=== PATIENT | female | born 1945 | race Caucasian/White ===

== ENCOUNTER 2020-03-02 10:26 | Outpatient (CLI) | payer MEDICARE, BC ==
[2020-03-02 15:53] LABS: ALBUMIN 4.6 g/dL (3.2-5.5); ALBUMIN/GLOBULIN RATIO 1.8 (1.0-2.2); BILIRUBIN,TOTAL 0.9 mg/dL (0.2-1.0); CALCIUM 9.6 mg/dL (8.5-10.3); CREATININE 0.8 mg/dL (0.4-1.0); TOTAL PROTEIN 7.2 g/dL (6.7-8.2)
== END 2020-03-02 10:27 | disposition home or self-care (01) ==
LOC: LAB.S 10:26
PROVIDERS: ATTEND Internal Medicine
DX: E78.00 Pure hypercholesterolemia, unspecified (principal); Z86.39 Personal history of other endocrine, nutritional and metabolic disease; I10 Essential (primary) hypertension
CPT/HCPCS: 36415; 80053; 84443

== ENCOUNTER 2020-04-02 07:30 | Outpatient (CLI) | payer MEDICARE, BC ==
[2020-04-02 15:35] LABS: CHOL/HDL RATIO 3.6 (<4.4); CHOLESTEROL 250 mg/dL; HDL CHOLESTEROL 69 mg/dL; LDL CHOLESTEROL,CALCULATED 165 mg/dL; LDL/HDL RATIO 2.4 (<4.4); VLDL CHOLESTEROL 16 mg/dL
== END 2020-04-02 07:31 | disposition home or self-care (01) ==
LOC: LAB.S 07:30
PROVIDERS: ATTEND Internal Medicine
DX: E78.00 Pure hypercholesterolemia, unspecified (principal); I10 Essential (primary) hypertension
CPT/HCPCS: 36415; 80061; 83721

== ENCOUNTER 2021-05-25 08:00 | Outpatient (CLI) | payer BC, MEDICARE ==
--- NOTE | 2021-05-25 15:07 | XRAY Report ---
PROCEDURE: Wrist 4 View RT INDICATIONS: UNSPECIFIED FRACTURE OF RIGHT WRIST TECHNIQUE: 4 views of the wrist were acquired. COMPARISON: June 20, 2013 FINDINGS: BONES: Transverse, mildly comminuted fracture of the distal radius, which extends to the distal radio ulnar articulation. Nondisplaced fracture of the ulnar styloid The carpal bones are normally aligned. Mild to moderate arthrosis of the first carpometacarpal articulation. SOFT TISSUES: Edema about the fracture site. IMPRESSION: 1.Fractures of the distal radius and ulnar styloid as detailed above. Reviewed by: Jatin Yanez MD on 05/25/2021 3:05 PM PDT Approved by: Jatin Yanez MD on 05/25/2021 3:05 PM PDT Station ID: [id number]
== END 2021-05-25 23:59 | disposition home or self-care (01) ==
LOC: DI.S 08:00
PROVIDERS: ATTEND Emergency Medicine
DX: S52.501A Unspecified fracture of the lower end of right radius, initial encounter for closed fracture (principal); S52.614A Nondisplaced fracture of right ulna styloid process, initial encounter for closed fracture

== ENCOUNTER 2021-07-12 08:00 | Outpatient (CLI) | payer MEDICARE ==
--- NOTE | 2021-07-12 17:25 | XRAY Report ---
PROCEDURE: Wrist 3 View RT INDICATIONS: COLLES FX OF R RADIUS TECHNIQUE: 3 views of the wrist were acquired. COMPARISON: X-ray wrist 05/25/2021. FINDINGS: Bones: There is a comminuted impacted fracture of the distal radius with intra-articular extension. O verall, there appears to be mildly increased impaction compared to prior exam. Otherwise, alignment i s relatively stable. Degenerative changes are present at the first CMC joint.. No suspicious bony le sions. Soft tissues: No suspicious soft tissue calcifications. IMPRESSION: Distal radial fracture with mild appearance of progressive interval impaction as above. Reviewed by: Jacki Monson MD on 07/12/2021 5:23 PM PST Approved by: Jacki Monson MD on 07/12/2021 5:23 PM PST Station ID: [id number]
== END 2021-07-12 23:59 | disposition home or self-care (01) ==
LOC: DI.N 08:00
PROVIDERS: ATTEND Orthopaedic Surgery
DX: S52.531D Colles' fracture of right radius, subsequent encounter for closed fracture with routine healing (principal); M18.11 Unilateral primary osteoarthritis of first carpometacarpal joint, right hand

== ENCOUNTER 2023-04-13 16:50 | Emergency (ER) | payer MEDICARE, OTHER ==
[2023-04-13 17:43] LABS: BASOPHILS # (AUTO) 0.1 10^3/uL (0.0-0.1); BASOPHILS % (AUTO) 0.5 %; EOSINOPHILS # (AUTO) 0.2 10^3/uL (0.0-0.7); HCT - HEMATOCRIT 40.1 % (37.0-47.0); HGB - HEMOGLOBIN 13.4 g/dL (12.0-16.0); LYMPHOCYTES # (AUTO) 3.5 10^3/uL (1.5-3.5); LYMPHOCYTES % (AUTO) 33.8 %; MEAN CORPUSCULAR HEMOGLOBIN 31.9 pg (27.0-31.0); MEAN CORPUSCULAR HGB CONC 33.4 g/dL (32.0-36.0); MEAN CORPUSCULAR VOLUME 95.5 fL (81.0-99.0); MEAN PLATELET VOLUME 9.1 fL (7.9-10.8); MONOCYTES # (AUTO) 0.8 10^3/uL (0.0-1.0); MONOCYTES % (AUTO) 7.9 %; NEUTROPHILS # (AUTO) 5.8 10^3/uL (1.5-6.6); NEUTROPHILS % (AUTO) 55.4 %; PLT - PLATELET COUNT 267 10^3/uL (130-450); RED CELL DISTRIBUTION WIDTH 12.7 % (12.0-15.0); WHITE BLOOD COUNT 10.4 x10^3/uL (4.8-10.8)
[2023-04-13 17:57] LABS: ALBUMIN 4.3 g/dL (3.2-5.5); ALBUMIN/GLOBULIN RATIO 1.5 (1.0-2.2); BILIRUBIN,TOTAL 0.3 mg/dL (0.2-1.0); CREATININE 0.8 mg/dL (0.6-1.3); TOTAL PROTEIN 7.1 g/dL (6.4-8.9)
[2023-04-13 19:05] LABS: BILIRUBIN,URINE NEGATIVE (NEGATIVE); CLARITY,URINE HAZY (CLEAR); GLUCOSE, URINE (UA) NEGATIVE (NEGATIVE); KETONES,URINE (UA) NEGATIVE (NEGATIVE); LEUKOCYTE ESTERASE, URINE MODERATE (NEGATIVE); NITRITE,URINE NEGATIVE (NEGATIVE); OCCULT BLOOD,URINE TRACE-INTA (NEGATIVE); PROTEIN,URINE NEGATIVE (NEGATIVE); UROBILINOGEN,URINE 0.2 (NORMAL) E.U./dL (NORMAL)
[2023-04-13 19:19] LABS: BACTERIA,URINE Many /HPF (None Seen); RBC,URINE 0-5 /HPF (0-5); SQUAMOUS EPITHELIAL CELL,UR RARE Squamous (<= Few); WBC,URINE >25 /HPF (0-5)
[2023-04-13] MEDS ORDERED: oxyCODONE/ACET 5/325 Prepack 4 PO STA (19:20)
[2023-04-13] MEDS ORDERED: oxyCODONE 5 MG TABLET PO STA (19:21)
[2023-04-13] MEDS ORDERED: NITROFURANTOIN MACRO 100 MG CAPSULE PO STA (19:23)
--- NOTE | 2023-04-13 19:25 | ED Physician Documentation ---
PD HPI ABD PAIN - Stated complaint Stated Complaint: ABD PX - Chief complaint Chief Complaint: Abd Pain - History obtained from History obtained from: Patient, Family (spouse) - Additional information Additional information: 78yF with pmh diverticulitis s/p partial colectomy, bladder sling, uti, p/w increased urinary frequency and suprapubic/LLQ pain since 11am today. denies fever, back pain, nausea or dysuria/hematuria. PD PAST MEDICAL HISTORY - Present Medications Home Medications: Ambulatory Orders Medication Instructions Recorded Confirmed Nitrofurantoin [Macrobid] 100 mg PO BID #14 tab 04/13/23 - Allergies Allergies/Adverse Reactions: Allergies Allergy/AdvReac Type Severity Reaction Status Date / Time adhesive tape Allergy Rash Verified 04/13/23 17:16 bacitracin Allergy Rash Verified 04/13/23 17:16 [From Neosporin ([id number])] neomycin Allergy Rash Verified 04/13/23 17:16 [From Neosporin ([id number]-[id number])] polymyxin B Allergy Rash Verified 04/13/23 17:16 [From Neosporin ([id number]-[id number]-[id number])] Sulfa (Sulfonamide Allergy Unknown Verified 04/13/23 17:15 Antibiotics) PD ED PE NORMAL - Vitals Vital signs reviewed: Yes - General General: Alert and oriented X 3, No acute distress, Well developed/nourished - HEENT HEENT: Atraumatic, PERRL, EOMI - Neck Neck: Supple, no meningeal sign - Cardiac Cardiac: RRR - Respiratory Respiratory: No respiratory distress, Clear bilaterally - Abdomen Abdomen: Non tender, Non distended - Back Back: No CVA TTP - Derm Derm: Normal color, Warm and dry Results - Vitals Vitals: Vital Signs - 24 hr 04/13/23 17:12 Temperature 36.8 C Heart Rate 67 Respiratory 15 Rate Blood Pressure 186/56 H O2 Saturation 97 Oxygen O2 Source Room air - Labs Labs: Laboratory Tests 04/13/23 04/13/23 04/13/23 17:37 17:37 18:52 WBC 10.4 RBC 4.20 Hgb 13.4 Hct 40.1 MCV 95.5 MCH 31.9 H MCHC 33.4 RDW 12.7 Plt Count 267 MPV 9.1 Neut # (Auto) 5.8 Lymph # (Auto) 3.5 [place] # (Auto) 0.8 Eos # (Auto) 0.2 Baso # (Auto) 0.1 Absolute Nucleated RBC 0.00 Nucleated RBC % 0.0 Sodium 136 Potassium 4.0 Chloride 103 Carbon Dioxide 29 Anion Gap 4.0 L BUN 24 H Creatinine 0.8 Estimated GFR (MDRD) 69 L Glucose 97 Calcium 10.0 Total Bilirubin 0.3 AST 15 ALT 10 Alkaline Phosphatase 58 Total Protein 7.1 Albumin 4.3 Globulin 2.8 Albumin/Globulin Ratio 1.5 Lipase 42 Urine Color YELLOW Urine Clarity HAZY Urine pH 6.0 Ur Specific [place] <=1.005 Urine Protein NEGATIVE Urine Glucose (UA) NEGATIVE Urine Ketones NEGATIVE Urine Occult Blood TRACE-INTA Urine Nitrite NEGATIVE Urine Bilirubin NEGATIVE Urine Urobilinogen 0.2 (NORMAL) Ur Leukocyte Esterase MODERATE H Urine RBC 0-5 Urine WBC >25 H Ur Squamous Epith Cells RARE Squamous Urine Bacteria Many H Ur Microscopic Review INDICATED Urine Culture Comments INDICATED PD Medical Decision Making - ED course ED course: 78yF p/w abdominal pain and urinary sx, found to have uti on labwork. cbc, abdominal panel benign. abdominal exam was benign. shared decision to hold off on ct given this does not feel like prior diverticulitis flare and her belly is ntnd. antibiotics provided. patient stated 7/10 pain refractory to tylenol therefore percoset was provided with relief. return precuations given. plan to f/u pcp. Departure - Departure Disposition: 01 Home, Self Care Clinical Impression: UTI (urinary tract infection), Abdominal pain Condition: Stable Instructions: ED UTI Cystitis Female Prescriptions: Nitrofurantoin [Macrobid] 100 mg PO BID #14 tab Comments: You were seen in the ED for uti. Antibiotics were sent to [facility] in [place]. Please follow up with your primary care provider and return to the ED for new or worsening symptoms or other concerns.
[2023-04-13 19:51] VITALS: BP 161/53; O2SAT 96
--- NOTE | 2023-04-16 17:20 | ED Physician Documentation ---
ED Addendum - Addendum Addendum: 04/16/23 17:19 The patient's urine culture came back showing Klebsiella pneumonia a greater than 100,000. She had been discharged on Macrobid. She is allergic to Neosporin and Bactrim. We could change her to Cipro which it is sensitive to. I will send a prescription for Cipro 250 twice daily for 5 days to her pharmacy. Nursing staff will call her.
== END 2023-04-13 19:44 | disposition home or self-care (01) ==
LOC: SUPCPDRO 16:50 → ED 16:50
DX: N39.0 Urinary tract infection, site not specified (principal)
CPT/HCPCS: 36415; 80053; 81001; 83690; 85025; 87077; 87086; 87181; 99283; A9270; 81003

== ENCOUNTER 2023-04-20 13:04 | Outpatient (CLI) | payer MEDICARE, OTHER ==
--- NOTE | 2023-04-20 16:00 | XRAY Report ---
PROCEDURE: Cervical Spine Comp w/Flex/Ext INDICATIONS: CERVICAL SPONDYLOSIS TECHNIQUE: 7 views of the cervical spine were acquired. COMPARISON: Cervical spine radiographs 11/16/2014. FINDINGS: Bones: No fractures or dislocations to the T1 level. No suspicious bony lesions. Retrolisthesis of C5 on C6 measuring 0.4 cm. Anterolisthesis of C7 on T1 measuring 0.3 cm. Not significant change with flexion and extension. Mild multilevel right neural bony foraminal narrowing is seen. There is rachel l range of motion between flexion and extension, with preserved normal bony alignment. Soft tissues: Prevertebral soft tissues are normal in thickness. IMPRESSION: Grade 1 retrolisthesis of C5 on C6; and C7 on T1. Multilevel bony neural foraminal narrowing on the right seen. Reviewed by: Jax Vu MD on 04/20/2023 3:58 PM PDT Approved by: Jax Vu MD on 04/20/2023 3:58 PM PDT Station ID: [id number]
== END 2023-04-20 13:05 | disposition home or self-care (01) ==
LOC: DI 13:04
PROVIDERS: ATTEND Family Medicine
DX: M47.812 Spondylosis without myelopathy or radiculopathy, cervical region (principal); M43.12 Spondylolisthesis, cervical region; M43.14 Spondylolisthesis, thoracic region; M48.02 Spinal stenosis, cervical region

== ENCOUNTER 2023-08-17 13:06 | Emergency (ER) | payer MEDICARE, OTHER ==
--- NOTE | 2023-08-17 13:34 | ED Physician Documentation ---
PD HPI FEMALE - Stated complaint Stated Complaint: /BLEEDING - Chief complaint Chief Complaint: Abd Pain - History obtained from History obtained from: Patient, Family - History of Present Illness Timing - onset: Yesterday - Additional information Additional information: 78-year-old female with no significant known past medical history does not take any medications daily for anything presents to the emergency department today for dysuria. Since April patient reports that she has had 2 urinary tract infections and this would be the third if this ends up being a UTI. She recently completed a full course of ciprofloxacin last dose was on Sunday or Sunday she was seen at a walk-in clinic in [place] about a week or so ago. She also reports that she takes a vaginal suppository prescribed by her [facility] consultant for vaginal bleeding. She recently ran out of this vaginal suppository about a week or so ago and started noticing a scant amount of vaginal bleeding again today. She denies any heavy vaginal bleeding no abdominal cramping no CVA tenderness no recent fevers or chills. She does report that she was able to reorder this vaginal suppository medication (it does not sound like an estrogen cream) and says that should be arriving in a couple days. PD PAST MEDICAL HISTORY - Past Medical History Past Medical History: Yes Cardiovascular: None Respiratory: None Neuro: None (UTIs) GI: Diverticulitis : Incontinence - Past Surgical History General: Bowel surgery - Present Medications Home Medications: Ambulatory Orders Medication Instructions Recorded Confirmed Nitrofurantoin [Macrobid] 100 mg PO BID #14 tab 04/13/23 Ciprofloxacin [Cipro] 250 mg PO BID 5 Days #10 tablet 04/16/23 Phenazopyridine HCl [Pyridium] 200 mg PO TID #6 tablet 08/17/23 cephALEXin [Keflex] 500 mg PO Q12H 7 Days #13 cap 08/17/23 - Allergies Allergies/Adverse Reactions: Allergies Allergy/AdvReac Type Severity Reaction Status Date / Time adhesive tape Allergy Rash Verified 04/13/23 17:16 bacitracin Allergy Rash Verified 04/13/23 17:16 [From Neosporin ([id number]-wxl-[id number])] neomycin Allergy Rash Verified 04/13/23 17:16 [From Neosporin (xbl-spt-ukeof)] polymyxin B Allergy Rash Verified 04/13/23 17:16 [From Neosporin (jqq-kwj-[id number])] Sulfa (Sulfonamide Allergy Unknown Verified 04/13/23 17:15 Antibiotics) - Social History Does the pt smoke?: No Smoking Status: Never smoker PD ED PE NORMAL - Vitals Vital signs reviewed: Yes - General General: Alert and oriented X 3 - Abdomen Abdomen: Normal bowel sounds, Soft, Non tender (Denies CVA tenderness) Results - Vitals Vitals: Vital Signs - 24 hr 08/17/23 08/17/23 08/17/23 13:19 13:25 14:43 Temperature 36.5 C 36.5 C 36.3 C L Heart Rate 68 68 61 Respiratory 18 18 18 Rate Blood Pressure 151/69 H 151/69 H 155/64 H O2 Saturation 98 98 100 Oxygen O2 Source Room air - Labs Labs: Laboratory Tests 08/17/23 13:31 Urine Color YELLOW Urine Clarity HAZY Urine pH 6.0 Ur Specific [place] <=1.005 Urine Protein NEGATIVE Urine Glucose (UA) NEGATIVE Urine Ketones NEGATIVE Urine Occult Blood LARGE H Urine Nitrite NEGATIVE Urine Bilirubin NEGATIVE Urine Urobilinogen 0.2 (NORMAL) Ur Leukocyte Esterase LARGE H Urine RBC 6-10 H Urine WBC 11-25 H Ur Squamous Epith Cells FEW Squamous Urine Bacteria Moderate H Ur Microscopic Review INDICATED Urine Culture Comments INDICATED PD Medical Decision Making - ED course ED course: Patient was able to follow-up her urinalysis results from her previous walk-in clinic appointment. She tested positive for Klebsiella pneumoniae, and was resistant against ampicillin but other than that sensitive to all other antibiotics. Here in the emergency department urinalysis does reveal positive leukocytosis, WBCs and bacteria. Will start her on 500 mg Keflex twice daily for total of 7 days as well as Pyridium for the pain and discomfort. Patient was told to follow-up with primary care provider they have an appointment on Sunday for further evaluation of his recurrent urinary tract infections she has been informed that the urine will be sent to lab for further culturing we will call her if she needs to make any antibiotic change. In regards to the patient's vaginal bleeding. Patient reports that is very minimal vaginal bleeding. This is what patient experienced prior to initiating her vaginal suppositories unfortunately she is not able to over the name of the vaginal suppository that she uses but declined to have pelvic exam completed here in the ER. Patient was told to follow-up with provider who originally started this vaginal suppository medication to have repeat pelvic exam done if vaginal bleeding does not resolve after reinitiating her vaginal suppository medication that she is normally on. Departure - Departure Disposition: 01 Home, Self Care Clinical Impression: Urinary tract infection Qualifiers: Urinary tract infection type: acute cystitis Hematuria presence: with hematuria Qualified Code(s): N30.01 - Acute cystitis with hematuria Condition: Good Instructions: ED UTI Cystitis Female Prescriptions: cephALEXin [Keflex] 500 mg PO Q12H 7 Days #13 cap Phenazopyridine HCl [Pyridium] 200 mg PO TID #6 tablet Comments: Thank you for trusting us with your care.We have started you on an antibiotic called Keflex here in the emergency department you will take this twice a day until you run out. I have also prescribed you medication called Pyridium to help with your pain and discomfort while urinating. Be aware that this will turn your urine bright orange make sure that you are drinking plenty of fluids while taking this medication. We will call you if you need to change antibiotics pending what your urine cultures reveal. Please come back to the emergency department if you start to develop any fevers or chills flank (side) pain or any other concerning symptoms. Make sure you follow-up with your primary care provider on Sunday to discuss your recurrent urinary tract infection symptoms. In regards to your vaginal bleeding as soon as your new vaginal suppositories arrive I would reinitiate those if you start to develop heavy vaginal bleeding to the point where you are changing 1 pad every hour for more than 2 to 3 hours please come back to the emergency department. Forms: PCP List Discharge Date/Time: 08/17/23 14:43
[2023-08-17 13:56] LABS: BILIRUBIN,URINE NEGATIVE (NEGATIVE); CLARITY,URINE HAZY (CLEAR); GLUCOSE, URINE (UA) NEGATIVE (NEGATIVE); KETONES,URINE (UA) NEGATIVE (NEGATIVE); LEUKOCYTE ESTERASE, URINE LARGE (NEGATIVE); NITRITE,URINE NEGATIVE (NEGATIVE); OCCULT BLOOD,URINE LARGE (NEGATIVE); PROTEIN,URINE NEGATIVE (NEGATIVE); UROBILINOGEN,URINE 0.2 (NORMAL) E.U./dL (NORMAL)
[2023-08-17 14:04] LABS: BACTERIA,URINE Moderate /HPF (None Seen); SQUAMOUS EPITHELIAL CELL,UR FEW Squamous (<= Few)
[2023-08-17] MEDS ORDERED: PHENAZOPYRIDINE 100 MG TABLET PO STA (14:15)
[2023-08-17] MEDS ORDERED: cephALEXin 250 MG CAPSULE PO STA (14:16)
[2023-08-17 14:44] VITALS: BP 155/64; O2SAT 100
== END 2023-08-17 14:43 | disposition home or self-care (01) ==
LOC: ED 13:06
DX: N30.01 Acute cystitis with hematuria (principal)
CPT/HCPCS: 81001; 87086; 99283; A9270; 81003

== ENCOUNTER 2024-02-07 15:05 | Emergency (ER) | payer MEDICARE, OTHER ==
[2024-02-07 15:39] LABS: BASOPHILS % (AUTO) 0.3 %; EOSINOPHILS # (AUTO) 0.2 10^3/uL (0.0-0.7); EOSINOPHILS % (AUTO) 2.5 %; HCT - HEMATOCRIT 39.8 % (37.0-47.0); HGB - HEMOGLOBIN 13.1 g/dL (12.0-16.0); LYMPHOCYTES % (AUTO) 32.8 %; MEAN CORPUSCULAR HGB CONC 32.9 g/dL (32.0-36.0); MEAN CORPUSCULAR VOLUME 94.1 fL (81.0-99.0); MEAN PLATELET VOLUME 9.4 fL (7.9-10.8); MONOCYTES # (AUTO) 0.8 10^3/uL (0.0-1.0); MONOCYTES % (AUTO) 12.7 %; NEUTROPHILS # (AUTO) 3.1 10^3/uL (1.5-6.6); NEUTROPHILS % (AUTO) 51.5 %; PLT - PLATELET COUNT 218 10^3/uL (130-450); RED BLOOD COUNT 4.23 10^6/uL (4.20-5.40); RED CELL DISTRIBUTION WIDTH 12.4 % (12.0-15.0)
[2024-02-07 15:53] LABS: ALBUMIN 4.3 g/dL (3.2-5.5); ALBUMIN/GLOBULIN RATIO 1.6 (1.0-2.2); BILIRUBIN,TOTAL 0.4 mg/dL (0.2-1.0); CALCIUM 9.9 mg/dL (8.5-10.3); CREATININE 0.7 mg/dL (0.6-1.3)
--- NOTE | 2024-02-07 16:14 | ED Physician Documentation ---
PD HPI ABD PAIN - Stated complaint Stated Complaint: LT SIDE ABD PX - Chief complaint Chief Complaint: Abd Pain - History obtained from History obtained from: Patient - Additional information Additional information: She has a history of bladder sling, pelvic floor dysfunction, diverticulitis, and hysterectomy. Many years ago she actually had complicated diverticulitis necessitating what sounds like may be IR guided drainage. She has had left lower quadrant pain for the last 2 days with diarrhea at the outset now better. No fevers or chills. No nausea. PD PAST MEDICAL HISTORY - Past Medical History Cardiovascular: None Respiratory: None Neuro: None GI: Diverticulitis : Incontinence - Past Surgical History General: Bowel surgery - Present Medications Home Medications: Ambulatory Orders Medication Instructions Recorded Confirmed Nitrofurantoin [Macrobid] 100 mg PO BID #14 tab 04/13/23 Ciprofloxacin [Cipro] 250 mg PO BID 5 Days #10 tablet 04/16/23 Phenazopyridine HCl [Pyridium] 200 mg PO TID #6 tablet 08/17/23 cephALEXin [Keflex] 500 mg PO Q12H 7 Days #13 cap 08/17/23 Amox/Clav 875/125 [Augmentin] 1 each PO TID #21 tablet 02/07/24 - Allergies Allergies/Adverse Reactions: Allergies Allergy/AdvReac Type Severity Reaction Status Date / Time adhesive tape Allergy Rash Verified 02/07/24 15:19 bacitracin Allergy Rash Verified 02/07/24 15:19 [From Neosporin ([id number]-sna-[id number])] neomycin Allergy Rash Verified 02/07/24 15:19 [From Neosporin (gyq-ivb-xnudk)] polymyxin B Allergy Rash Verified 02/07/24 15:19 [From Neosporin (fvp-fkb-jhsph)] Sulfa (Sulfonamide Allergy Unknown Verified 02/07/24 15:19 Antibiotics) - Social History Does the pt smoke?: No Smoking Status: Never smoker PD ED PE NORMAL - Vitals Vital signs reviewed: Yes - General General: Alert and oriented X 3, No acute distress - Abdomen Abdomen: Other (Minimal tenderness in the left lower quadrant without surgical signs, she has hyperactive bowel sounds.) - Neuro Neuro: Alert and oriented X 3 Results - Vitals Vitals: Vital Signs - 24 hr 02/07/24 15:12 Temperature 36.3 C L Heart Rate 71 Respiratory 18 Rate Blood Pressure 150/79 H O2 Saturation 99 Oxygen O2 Source Room air - Labs Labs: Laboratory Tests 02/07/24 02/07/24 15:30 15:30 WBC 6.0 RBC 4.23 Hgb 13.1 Hct 39.8 MCV 94.1 MCH 31.0 MCHC 32.9 RDW 12.4 Plt Count 218 MPV 9.4 Neut # (Auto) 3.1 Lymph # (Auto) 2.0 [place] # (Auto) 0.8 Eos # (Auto) 0.2 Baso # (Auto) 0.0 Absolute Nucleated RBC 0.00 Nucleated RBC % 0.0 Sodium 135 Potassium 4.0 Chloride 101 Carbon Dioxide 29 Anion Gap 5.0 L BUN 8 Creatinine 0.7 Estimated GFR (MDRD) 80 L Glucose 92 Calcium 9.9 Total Bilirubin 0.4 AST 23 ALT 18 Alkaline Phosphatase 51 Total Protein 7.0 Albumin 4.3 Globulin 2.7 Albumin/Globulin Ratio 1.6 Lipase 27 PD Medical Decision Making - ED course ED course: She clinically has diverticulitis. We had a long discussion about CT imaging especially in light of normal CBC, CMP. After discussion she would like to forego imaging today with trial of antibiotics and dietary restrictions and will return if worse. Departure - Departure Disposition: Home, Self Care Clinical Impression: Diverticulitis of gastrointestinal tract Instructions: ED Diverticulitis, ED Diet Clear Liquid, Diet Low Residue Prescriptions: Amox/Clav 875/125 [Augmentin] 1 each PO TID #21 tablet Comments: I sent your prescription electronically to the [facility] in [place]. As discussed your lab work is unremarkable, and I suspect you have uncomplicated diverticulitis given your history and physical examination. Return Sunday or Sunday if not improving, or anytime for new or worsening symptoms. I sent your prescription electronically to the [facility] in [place]. Even if you do improve we encourage a follow-up appointment with your primary care physician. Do the clear liquid diet for the next 24 hours, then a low residue diet for another 24 hours. See attached dietary instructions.
[2024-02-07 16:18] LABS: BILIRUBIN,URINE NEGATIVE (NEGATIVE); GLUCOSE, URINE (UA) NEGATIVE (NEGATIVE); KETONES,URINE (UA) NEGATIVE (NEGATIVE); LEUKOCYTE ESTERASE, URINE NEGATIVE (NEGATIVE); NITRITE,URINE NEGATIVE (NEGATIVE); OCCULT BLOOD,URINE NEGATIVE (NEGATIVE); PROTEIN,URINE NEGATIVE (NEGATIVE); UROBILINOGEN,URINE 0.2 (NORMAL) E.U./dL (NORMAL)
[2024-02-07 16:21] LABS: CLARITY,URINE CLEAR (CLEAR)
[2024-02-07] MEDS: AMOX/CLAV 875 MG/125 MG TABLET PO STA (16:34)
[2024-02-07 16:47] VITALS: BP 160/70; O2SAT 98
== END 2024-02-07 16:40 | disposition home or self-care (01) ==
LOC: ED 15:05
DX: K57.92 Diverticulitis of intestine, part unspecified, without perforation or abscess without bleeding (principal)
CPT/HCPCS: 36415; 80053; 81003; 83690; 85025; 99283; 99284; A9270; 81001; 87086

== ENCOUNTER 2024-02-29 10:54 | Emergency (ER) | payer MEDICARE, OTHER ==
--- NOTE | 2024-02-29 12:09 | ED Physician Documentation ---
PD HPI FEMALE - Stated complaint Stated Complaint: CATHETER ADJUST - Chief complaint Chief Complaint: Abd Pain - History obtained from History obtained from: Patient - Additional information Additional information: [facility] where she had material injected around the urethra to help with incontinence. Was given straight caths but is running out and advised to come here for martinez. Also has hematuria w/o clots. Also no BM x 2-3 days. PD PAST MEDICAL HISTORY - Past Medical History Past Medical History: Yes Cardiovascular: None Respiratory: None Neuro: None GI: Diverticulitis : Incontinence - Past Surgical History Past Surgical History: Yes General: Bowel surgery - Present Medications Home Medications: Ambulatory Orders Medication Instructions Recorded Confirmed cefuroxime axetiL [Ceftin] 500 mg PO BID 02/29/24 02/29/24 - Allergies Allergies/Adverse Reactions: Allergies Allergy/AdvReac Type Severity Reaction Status Date / Time adhesive tape Allergy Rash Verified 02/29/24 11:24 bacitracin Allergy Rash Verified 02/29/24 11:24 [From Neosporin (gap-yfi-jggow)] neomycin Allergy Rash Verified 02/29/24 11:24 [From Neosporin (shp-jfq-cmyxr)] polymyxin B Allergy Rash Verified 02/29/24 11:24 [From Neosporin (xwn-hbi-kbgxk)] Sulfa (Sulfonamide Allergy Unknown Verified 02/29/24 11:24 Antibiotics) - Social History Does the pt smoke?: No Smoking Status: Never smoker PD ED PE NORMAL - Vitals Vital signs reviewed: Yes - General General: Alert and oriented X 3, No acute distress - Abdomen Abdomen: Normal bowel sounds, Soft, Non tender - Rectal Rectal: Other (No fecal impaction, done with Eliana SEGURA present and chaperoning) Results - Vitals Vitals: Vital Signs - 24 hr 02/29/24 02/29/24 02/29/24 11:19 12:21 12:30 Temperature 36.5 C Heart Rate 88 77 72 Respiratory 16 15 15 Rate Blood Pressure 140/66 H 133/58 H 139/70 H O2 Saturation 97 96 96 02/29/24 02/29/24 02/29/24 13:00 13:30 13:40 Temperature 36.5 C Heart Rate 74 85 85 Respiratory 16 14 14 Rate Blood Pressure 138/55 H 129/67 129/67 O2 Saturation 95 96 96 Oxygen O2 Source Room air PD Medical Decision Making - ED course ED course: She has urinary retention status post to urologic procedure. A Martinez was placed with gross bloody urine out. She requested a small Martinez to help with postoperative healing and this makes sense since the procedure was done to help with incontinence. A 16 [place]ese Martinez was placed after which I did a bedside ultrasound which showed clots in the bladder. I hand irrigated until clear and on repeat ultrasonography the bladder was now collapsed around the Martinez balloon. A call was placed to her urologist for consult. I subsequently spoke with Dr. Aquino, on-call for her urologist to agreed with the current plan of care. They recommended that she self remove her Martinez on Sunday Departure - Departure Disposition: Home, Self Care Clinical Impression: Urinary retention with incomplete bladder emptying, Hematuria Condition: Good Record reviewed to determine appropriate education?: Yes Instructions: ED Catheter Care Martinez Comments: I spoke with Dr. aMrtinez's nurse who was in touch with Dr. Martinez regarding her case. They would like you to remove the catheter on Sunday and follow-up per their instructions. Return for new or worsening symptoms. Forms: PCP List Discharge Date/Time: 02/29/24 13:41
[2024-02-29 13:50] VITALS: BP 129/67; O2SAT 96
== END 2024-02-29 13:41 | disposition home or self-care (01) ==
LOC: ED 10:54
DX: R33.9 Retention of urine, unspecified (principal); R31.9 Hematuria, unspecified
CPT/HCPCS: 51702; 99283

== ENCOUNTER 2024-03-01 22:21 | Emergency (ER) | payer MEDICARE, OTHER ==
[2024-03-01 22:59] VITALS: O2SAT 98
[2024-03-01] MEDS ORDERED: LIDOCAINE JELLY 2% 6 ML JEL.PF.APP ONE (23:16)
--- NOTE | 2024-03-01 23:44 | ED Physician Documentation ---
PD HPI FEMALE - Stated complaint Stated Complaint: "BYPASSING CATHETER" - Chief complaint Chief Complaint: UTI - History obtained from History obtained from: Patient - Additional information Additional information: HPI from patient. Patient had urologic procedure 2 days ago for incontinence (urethral bulking). She then presented to this ED yesterday due to urinary retention; martinez catheter placed with gross hematuria with clots requiring irrigation of the martinez. ED MD charting indicates the bladder was irrigated until urine was clear of gross blood and clots. She returns to ED at this time due to recurrence of urinary retention as suggested by increasing urge to urinate over past several hours associated with no UO into martinez collection system and increasing suprapubic pain and distenti on. Over past 1-2 hours, she noted some UO around the catheter. She is currently on cefuroxime (rx 3 days ago for colitis or diverticulitis, per patient's description of circumstances leading to this Rx). Review of Systems Constitutional: denies: Fever, Chills, Sweats PD PAST MEDICAL HISTORY - Past Medical History Past Medical History: Yes Cardiovascular: None Respiratory: None Neuro: None GI: Diverticulitis : Incontinence - Past Surgical History Past Surgical History: Yes General: Bowel surgery - Present Medications Home Medications: Ambulatory Orders Medication Instructions Recorded Confirmed cefuroxime axetiL [Ceftin] 500 mg PO BID 02/29/24 02/29/24 - Allergies Allergies/Adverse Reactions: Allergies Allergy/AdvReac Type Severity Reaction Status Date / Time adhesive tape Allergy Rash Verified 03/01/24 22:47 bacitracin Allergy Rash Verified 03/01/24 22:47 [From Neosporin ([id number])] neomycin Allergy Rash Verified 03/01/24 22:47 [From Neosporin (ato-ujq-pvdxd)] polymyxin B Allergy Rash Verified 03/01/24 22:47 [From Neosporin ([id number]-dgs-aoymh)] Sulfa (Sulfonamide Allergy Unknown Verified 03/01/24 22:47 Antibiotics) - Social History Does the pt smoke?: No Smoking Status: Never smoker Does the pt drink ETOH?: No Does the pt have substance abuse?: No - Immunizations Immunizations are current?: Yes - POLST Patient has POLST: No PD ED PE NORMAL - Vitals Vital signs reviewed: Yes - General General: Alert and oriented X 3, No acute distress, Well developed/nourished - Abdomen Abdomen: Soft, Non tender, Non distended Results - Vitals Vitals: Vital Signs - 24 hr 03/01/24 03/02/24 22:41 00:15 Temperature 36.6 C 36.2 C L Heart Rate 75 74 Respiratory 18 16 Rate Blood Pressure 166/55 H 122/68 O2 Saturation 98 98 Oxygen O2 Source Room air PD Medical Decision Making - ED course Complexity details: reviewed old records, considered differential, d/w patient ED course: ED RN removed martinez catheter and replaced with new martinez catheter. There was rapid return of few hundred cc of clear dark yellow/orange urine (patient is taking Azo) associated with complete resolution of her symptoms of suprapubic pain, distention, and urge to urinate. The urine is not grossly bloody and no clots noted in martinez bag/tubing. No testing indicated at this time. Return precautions reviewed. Departure - Departure Disposition: 01 Home, Self Care Clinical Impression: Urinary retention Condition: Good Instructions: ED Catheter Care MARION Martinez Retention Urinary Female Discharge Date/Time: 03/02/24 00:15
[2024-03-02 00:22] VITALS: BP 122/68
== END 2024-03-02 00:15 | disposition home or self-care (01) ==
LOC: ED 22:21
DX: R33.9 Retention of urine, unspecified (principal); Z79.899 Other long term (current) drug therapy
CPT/HCPCS: 51702; 99283

== ENCOUNTER 2024-03-21 07:00 | Outpatient (CLI) | payer MEDICARE, OTHER ==
--- NOTE | 2024-03-23 08:20 | XRAY Report ---
PROCEDURE: Cervical Spine 2-3V INDICATIONS: NECK ARTHRALGIA TECHNIQUE: 3 view(s) of the cervical spine were acquired. COMPARISON: 04/20/2023 FINDINGS: Bones: No fractures or dislocations to the C7-T1 level. Straightening of the normal cervical lordosi s. Mild anterolisthesis is seen to C2 on C3, C3 on C4 and C4 on C5. Grade I retrolisthesis of C5 on C 6. Grade 1 anterolisthesis of C7 on T1. This is similar in appearance compared to prior. Multilevel d egenerative changes of the cervical spine with facet and uncovertebral arthropathy, disc height loss, endplate degenerative changes and spurring. The lateral masses of C1 appear intact on the odontoid view. No suspicious bony lesions. Soft tissues: No prevertebral soft tissue swelling. 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 Reviewed by: Parth Kingston MD on 03/23/2024 8:19 AM PDT Approved by: Parth Kingston MD on 03/23/2024 8:19 AM PDT Station ID: [id number]
== END 2024-03-21 23:59 | disposition home or self-care (01) ==
LOC: DI.S 07:00
PROVIDERS: ATTEND Emergency Medicine
DX: M47.812 Spondylosis without myelopathy or radiculopathy, cervical region (principal)